=== PATIENT | female | born 1945 | race Caucasian/White ===

== ENCOUNTER → 2018-08-25 13:11 | Outpatient (CLI) | payer OTHER ==
[~2018-08-25] VITALS: Ht 157.5 cm; Wt 72.7 kg
[2018-08-25 14:04] VITALS: BP 157/77; Ht 157.5 cm; Wt 72.7 kg
== END | disposition home or self-care (01) ==
LOC: D.OPS 13:11
PROVIDERS: ATTEND Family Medicine
DX: M81.0 Age-related osteoporosis without current pathological fracture (principal)

== ENCOUNTER 2019-03-02 12:12 | Outpatient (CLI) | payer MEDICARE ==
[~2019-03-02] VITALS: Ht 157.5 cm; Wt 72.7 kg
[2019-03-02 12:55] VITALS: BP 179/87; Ht 157.5 cm; Wt 72.7 kg
== END 2019-03-02 13:04 | disposition home or self-care (01) ==
LOC: D.OPS 12:12
PROVIDERS: ATTEND Family Medicine
DX: M81.0 Age-related osteoporosis without current pathological fracture (principal)